=== PATIENT | female | born 1995 ===

== ENCOUNTER → 2020-06-12 10:56 | Outpatient (BNVA) | payer BC, SELFPAY | PROVIDERS: PCP Internal Medicine; Visit Provider Obstetrics & Gynecology ==

== ENCOUNTER 2020-07-30 09:47 | Outpatient (REF) | payer BC, SELFPAY ==
[2020-07-30 12:58] LABS: Syphilis Screen Nonreactive (Nonreactive)
[2020-07-30 13:09] LABS: CT PCR NOT DETECTED (Not Detect.); NG PCR NOT DETECTED (Not Detect.)
[2020-07-31 04:24] LABS: HIV AB/AG Nonreactive (Nonreactive); HIV Num 1 0.05 S/CO (0.00-0.99)
[2020-07-31 04:36] LABS: HBc Num1 0.07 S/CO (0.00-0.79); Hepatitis B Core Antibody Nonreactive (Nonreactive)
[2020-07-31 05:06] LABS: ~HepC Num1 0.12 S/CO (0.00-0.79); ~Hepatitis C Antibody Nonreactive (Nonreactive)
[2020-08-10 21:57] LABS: HPV 16 RNA NOT DETECTED (NOT DETECTED); HPV mRNA E6/E7 rflx Detected (Not Detected)
== END 2020-07-30 09:48 | disposition home or self-care (01) ==
LOC: HO.LAB 09:47
PROVIDERS: PCP Internal Medicine; Visit Provider Advanced Practice Midwife
DX: Z01.419 Encounter for gynecological examination (general) (routine) without abnormal findings (principal); E28.2 Polycystic ovarian syndrome; Z20.2 Contact with and (suspected) exposure to infections with a predominantly sexual mode of transmission; Z86.19 Personal history of other infectious and parasitic diseases
CPT/HCPCS: 36415; 86704; 86780; 86803; 87389; 87491; 87591; 87624; 87625; 88141; 88142

== ENCOUNTER 2020-09-04 09:06 | Outpatient (REF) | payer BC, SELFPAY | END 2020-09-04 09:07 | disposition home or self-care (01) | LOC: HO.LAB 09:06 | PROVIDERS: Visit Provider Obstetrics & Gynecology | DX: N87.0 Mild cervical dysplasia (principal) | CPT/HCPCS: 57454; 88305; 88342; 88360 ==

== ENCOUNTER → 2020-09-21 15:27 | Outpatient (BNVA) | payer BC, SELFPAY | PROVIDERS: Visit Provider Obstetrics & Gynecology ==

== ENCOUNTER → 2020-10-23 13:56 | Outpatient (BNVA) | payer BC, SELFPAY | PROVIDERS: Visit Provider Obstetrics & Gynecology ==

== ENCOUNTER 2020-10-25 08:33 | Day surgery (SDC) | payer BC, SELFPAY ==
[2020-10-19 13:59] VITALS: BMI 34.7
--- NOTE | 2020-10-23 11:00 | HO.ANESPROP2 ---
Documented by User: Noreen Cat 10/23/20 11:00 HPI - Anesthesia Eval Consult details Narrative: 25yo F for LEEP [facility] Active Problems Active Problems: All Active Problems (Updated 06/12/20 @ 11:19 by Zaki Myers MD) PCOS (polycystic ovarian syndrome) (Acute) Past Medical History Medical History PCOS (polycystic ovarian syndrome) Surgical History Surgical History Surgical history unknown Social History Social History Alcohol intake: current Alcohol intake frequency: holidays/special occasions only Patient Tobacco Use Status: Never used Tobacco Are you DNR?: No Advance Directives Information Provided: No Gender identity: female Meds Allergies Allergy/AdvReac Type Severity Reaction Status Date / Time No Known Allergies Allergy Verified 10/23/20 14:05 [No Known Allergies*] Home Medications Medication Instructions Recorded Confirmed Last Taken Type amoxicillin 500 mg capsule 500 mg PO BID 06/12/20 Unknown History Exam Exam Date and Time: October 23, 2020 1100 Height,Weight and Vital Signs: Height 5 ft 1 in Weight 83.461 kg Assessment and Plan Assessment Anesthesia Assessment: Chart Reviewed Documented by User: Jing Blue 10/25/20 09:59 [facility] Past Medical History Medical History PCOS (polycystic ovarian syndrome) Family History Family history of problems with anesthesia: No Surgical History Surgical History Surgical history unknown History of Problems with Anesthesia: No Social History Social History Alcohol intake: current Alcohol intake frequency: holidays/special occasions only Patient Tobacco Use Status: Never used Tobacco Are you DNR?: No Advance Directives Information Provided: No Gender identity: female Meds Allergies Allergy/AdvReac Type Severity Reaction Status Date / Time No Known Allergies Allergy Verified 10/23/20 14:05 [No Known Allergies*] Home Medications Medication Instructions Recorded Confirmed Last Taken Type amoxicillin 500 mg capsule 500 mg PO BID 06/12/20 Unknown History Exam Height,Weight and Vital Signs: Vital Signs Temp Pulse Resp BP Pulse Ox 10/25/20 09:07 98.1 F 88 16 115/69 99 Pertinent Lab Results Pertinent Lab Results: Lab Results 10/25/20 Range/Units 08:46 Urine Test NEGATIVE (NEGATIVE) Airway Mallampati Class: II TM Dist: >3cm Neck ROM: Full Heart: RRR Lungs: CTAB Assessment and Plan Assessment Anesthesia Assessment: Anesthesia Plan Discussed and Chart Reviewed Final Anesthetic Review NPO: Yes ASA Class: II Final Preanesthetic Review: No Changes in Pt Med Stat, Meds/Allgs Chart Reviewed and Consent Obtained/Reviewed Patient Risk: Low Procedure Risk: Low Assessment/Block/Sedation in SS: Assess/Block/Sedation-SS Anesthetic Plan Anesthetic Plan: GA Disposition: Standard PACU
[2020-10-25] VITALS (8 sets, daily range): BP systolic 94–119; BP diastolic 44–70; PULSE 71–103; RESP 12–16; TEMP 36.1–36.7; O2SAT 96–99
[2020-10-25 08:56] LABS: UPreg QC Valid YES; Urine Pregnancy NEGATIVE (NEGATIVE)
[2020-10-25] MEDS: Lactated Ringers 1,000 ML 100 ML IVCONT (09:28)
--- NOTE | 2020-10-25 09:59 | MHC.SHP ---
Pre-Procedural Eval Section A The patient is an INPATIENT: No Changes since office visit: No Cold of Flu in the past 2 weeks, No New Medical Problems, No Changes in Medication and No Patient answered all questions The History & Physical has been completed within 30 days and I have reviewed it.: Yes Section B Chief Complaint: jeimy III Allergies: Allergies Allergy/AdvReac Type Severity Reaction Status Date / Time No Known Allergies Allergy Verified 10/23/20 14:05 [No Known Allergies*] Plan I have reviewed the history and physical and performed a pertinent physical examination on my patient. No changes have occurred unless specified.
--- NOTE | 2020-10-25 10:00 | P.OP_ITS ---
Operative Note Operative Note Date of Service: 10/25/20 Narrative: Preoperative Diagnosis: GENESIS III Postoperative Diagnosis: GENESIS III Procedure performed: Loop electrosurgical excision procedure Anesthesia: Findings: No non-staining areas with Lugols Complications: none Disposition: PACU Ms. Sutton is a 25 year old G0 with GENESIS 3 on endocervical curettage; colposcopy done for LSIL, HR HPV+ pap smear. Colposcopic cervical biopsy at 2 o'clock showed no GENESIS; however ECC showed GENESIS 3. Surgical Risks: The patient was informed of the risks and benefits of the LEEP procedure. Risks included but were not limited to bleeding, infection, injury to the vulva, vagina, or cervix, uterine perforation, and increased risk of labor in a future . The patient expressed understanding of the risks involved, all questions were answered, and the patient consented to the procedure. The patient was taken to the procedure room where a time out was performed to confirm correct patient and correct procedure. General anesthesia was established. The patient was positioned on the operating table in the dorsal lithotomy position with the legs supported using stirrups. All pressure points were padded and a warm blanket was placed to maintain control of core body temperature. The patient was prepped and draped in the usual sterile fashion. The bladder was emptied. A bivalve speculum was inserted into the vagina and the cervix was visualized. Local anesthesia with 1% lidocaine with epinephrine was injected for a total of 10cc circumferentially starting at 12 o'clock. Lugol's iodine was applied to the cervix with non non-staining areas being noted. The medium regular loop elect rode was used to excise the cervical sample using the mixed cautery starting at the 9 o'clock position laterally and extending to 3 o'clock. The gross specimen was removed and sent to pathology. The small regular loop electrode was then used to excise part of the endocervix. The gross specimen was removed and sent to pathology. Endocervical curettage was completed using the sridharian curette, placed on a telfa, and also sent to pathology. Ball electrocautery was used to obtain adequate hemostasis. Monsel's solution was then applied to maintain hemostasis. Good hemostasis was confirmed. The bivalve speculum was removed from the vagina. At the completion of the procedure, all needle, sponge, and instrument counts were noted to be correct x2. Patient tolerated the procedure well and was madera sferred to the recovery room in stable condition.
[2020-10-25] MEDS: ondansetron HCL 4 MG/2 ML VIAL IVPUSH (10:59)
== END 2020-10-25 12:30 | disposition home or self-care (01) ==
LOC: HO.SSS 08:34
PROVIDERS: Nurse Practitioner; Visit Provider Obstetrics & Gynecology
PROC: 0UBC7ZZ Excision of Cervix, Via Natural or Artificial Opening (ICD-10-PCS; CPT 57522; principal; 2020-10-25 10:40)
DX: D06.0 Carcinoma in situ of endocervix (principal); E28.2 Polycystic ovarian syndrome; Z79.899 Other long term (current) drug therapy
CPT/HCPCS: 57522; 81025; 88305; 88307; 88342; 88360; J1100; J2250; J2405; J2550; J3010

== ENCOUNTER 2021-05-31 08:46 | Outpatient (REF) | payer BC, SELFPAY ==
[2021-06-15 02:26] LABS: HPV 16 RNA NOT DETECTED (NOT DETECTED); HPV mRNA E6/E7 rflx Detected (Not Detected)
== END 2021-05-31 08:47 | disposition home or self-care (01) ==
LOC: HO.LAB 08:46
PROVIDERS: PCP Internal Medicine; Visit Provider Advanced Practice Midwife
DX: Z01.411 Encounter for gynecological examination (general) (routine) with abnormal findings (principal); Z11.51 Encounter for screening for human papillomavirus (HPV); D06.9 Carcinoma in situ of cervix, unspecified
CPT/HCPCS: 87624; 87625; 88142

== ENCOUNTER 2021-07-08 08:50 | Outpatient (REF) | payer BC, SELFPAY | END 2021-07-08 08:51 | disposition home or self-care (01) | LOC: HO.LAB 08:50 | PROVIDERS: PCP Internal Medicine; Visit Provider Obstetrics & Gynecology | DX: D06.9 Carcinoma in situ of cervix, unspecified (principal) | CPT/HCPCS: 57454; 88305; 88342; 88360 ==

== ENCOUNTER → 2021-07-22 11:31 | Outpatient (BNVA) | payer BC, SELFPAY | PROVIDERS: Visit Provider Obstetrics & Gynecology | DX: Z13.89 Encounter for screening for other disorder (principal) ==

== ENCOUNTER 2021-09-24 08:48 | Outpatient (REF) | payer BC, SELFPAY ==
[2021-09-24 16:54] LABS: CT PCR NOT DETECTED (Not Detect.); NG PCR NOT DETECTED (Not Detect.)
== END 2021-09-24 08:49 | disposition home or self-care (01) ==
LOC: HO.LAB 08:48
PROVIDERS: PCP Internal Medicine; Visit Provider Advanced Practice Midwife
DX: Z01.419 Encounter for gynecological examination (general) (routine) without abnormal findings (principal); Z20.2 Contact with and (suspected) exposure to infections with a predominantly sexual mode of transmission
CPT/HCPCS: 81025; 87491; 87591

== ENCOUNTER 2021-09-24 09:45 | Outpatient (REF) | payer BC, SELFPAY ==
[2021-09-25 07:46] LABS: HBc Num1 0.09 S/CO (0.00-0.79); HIV AB/AG Nonreactive (Nonreactive); HIV Num 1 0.05 S/CO (0.00-0.99); Hepatitis B Core Antibody Nonreactive (Nonreactive); ~Hepatitis C Antibody Nonreactive (Nonreactive)
[2021-09-25 12:49] LABS: Syphilis Screen Nonreactive (Nonreactive)
== END 2021-09-24 09:46 | disposition home or self-care (01) ==
LOC: HO.LAB 09:45
PROVIDERS: PCP Internal Medicine; Visit Provider Advanced Practice Midwife
DX: Z01.84 Encounter for antibody response examination (principal); Z11.4 Encounter for screening for human immunodeficiency virus [HIV]; Z20.2 Contact with and (suspected) exposure to infections with a predominantly sexual mode of transmission
CPT/HCPCS: 36415; 86704; 86780; 86803; 87389

== ENCOUNTER 2022-09-30 13:42 | Outpatient (REF) | payer BC, SELFPAY | END 2022-09-30 13:43 | disposition home or self-care (01) | LOC: HO.LNP 13:42 | PROVIDERS: PCP Internal Medicine; Visit Provider Advanced Practice Midwife | DX: Z01.419 Encounter for gynecological examination (general) (routine) without abnormal findings (principal) | CPT/HCPCS: 88142 ==

== ENCOUNTER 2022-09-30 14:34 | Outpatient (REF) | payer BC, SELFPAY ==
[2022-10-01 04:11] LABS: Syphilis Screen Nonreactive (Nonreactive)
[2022-10-01 04:21] LABS: HBc Num1 0.09 S/CO (0.00-0.79); HIV AB/AG Nonreactive (Nonreactive); HIV Num 1 0.06 S/CO (0.00-0.99); Hepatitis B Core Antibody Nonreactive (Nonreactive); ~HepC Num1 0.12 S/CO (0.00-0.79); ~Hepatitis C Antibody Nonreactive (Nonreactive)
[2022-10-01 06:01] LABS: CT PCR NOT DETECTED (Not Detect.); NG PCR NOT DETECTED (Not Detect.)
== END 2022-09-30 14:35 | disposition home or self-care (01) ==
LOC: HO.LAB 14:34
PROVIDERS: PCP Internal Medicine; Visit Provider Advanced Practice Midwife
DX: Z11.4 Encounter for screening for human immunodeficiency virus [HIV] (principal); Z20.2 Contact with and (suspected) exposure to infections with a predominantly sexual mode of transmission
CPT/HCPCS: 0353U; 86704; 86780; 86803; 87389

== ENCOUNTER 2024-05-25 10:45 | Outpatient (AMB) | payer OTHER, SELFPAY ==
--- NOTE | 2024-05-25 11:03 | A.OFFPC_ITS ---
Vital Signs 05/25/24 11:17 Height 5 ft Weight 193 lb BMI 37.7 BP 100/82 Blood Pressure Location Lt brachial Position Sitting Pulse 67 Pulse Source Pulse Oximeter Pulse Oximetry (%) 98 Oxygen Delivery Method Room Air Intake Visit Reasons: EP // Annual PE Intake Note: Pt is here today for her PE: last papsmear 10/01/22 Is last menstrual period known: Yes Last menstrual period: 02/14/24 Allergies No Known Allergies [No Known Allergies*] Allergy (Verified 05/25/24 11:43) Medication List - Last Reconciled 05/25/24 by Glenda Farrell MD No Known Home Meds Tobacco use date assessed: 05/25/24 Dental Screening Dental Screen Date: 05/25/24 Did you have a dental visit in the last 12 months?: Yes Did you have a dental problem in the last 6 months where you did not have access to dental care?: Yes Was dental information given to patient?: Patient has dentist HPI EP // Annual PE HPI Details 29-year-old lady here today for physical exam. Her last cervical can cer screening and pelvic exam was done 09/30/2022 at [facility] with negative findings, and has an upcoming appointment for next month for her routine Pap and pelvic exam already scheduled. 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 PCOS (polycystic ovarian syndrome) Surgical History H/O LEEP Surgical history unknown Family History (Updated 05/25/24 @ 11:20 by Nereida Muñiz CMA) Maternal Grandmother Diabetes Paternal Grandmother Diabetes Social History Housing: Apartment Alcohol intake: current Alcohol intake frequency: holidays/special occasions only Patient Tobacco Use Status: Never used Tobacco Current occupational status: employed Current occupation: [employer] Sexual orientation: Straight/Heterosexual Gender identity: Female Cognitive needs: No Hearing needs: No Vision needs: Yes Female Reproductive History Menstrual Age of Menarche: 11 Date of last menstrual period: 02/14/24 control method: none Date of last pap smear: 10/01/22 History of abnormal pap smear: Yes Questionnaire PHQ-9 Over the last 2 weeks, how often have you been bothered by any of the following problems? 1. Little interest or pleasure in doing things: not at all 2. Feeling down, depressed, or hopeless: not at all 3. Trouble falling or staying asleep, or sleeping too much: several days 4. Feeling tired or having little energy: not at all 5. Poor appetite or overeating: not at all 6. Feeling bad about yourself - or that you are a failure or have let yourself or your family down: not at all 7. Trouble concentrating on things, such as reading the newspaper or watching television: not at all 8. Moving or speaking so slowly that other people could have noticed. Or the opposite - being so fidgety or restless that you have been moving around a lot more than usual: not at all 9. Thoughts that you would be better off or of hurting yourself in some way: not at all Total score: 1 Depression Screening Interpretation: Negative Depression Screening Done: Yes Source: Developed by Drs. Mega Lawrence, Valorie Edwards, Marco Easley and colleagues, with an educational issa from [employer]. Thrive Questionnaire Date Thrive assessed: 05/18/24 I am a: Patient What is your living situation today?: I have a steady place to live Within the past 12 months, did the food you bought not last and you didn't have the money to get more?: Never true Within the past 12 months, did you worry whether your food would run out before you got money to buy more?: Never true Do you have trouble paying for medicines?: No Do you have trouble getting transportation to medical appointments?: No Do you have trouble paying your heating and electricity bill?: No Do you have trouble taking care of your child, family member or friend?: No Do you have trouble with day-to-day activities such as bathing, preparing meals, shopping, managing finances, etc.?: No Are you currently unemployed and looking for a job?: No Are you interested in more education?: No Please select the resources that you would like help with: None Currently or been in a relationship where the following occur: No concerns reported THRIVE Score: 0 AUDIT C Alcohol Use Questionnaire (AUDIT-C) 1. How often do you have a drink containing alcohol?: Monthly or less 2. How many drinks containing alcohol do you have on a typical day when you are drinking?: 1 or 2 3. How often do you have six or more drinks on one occasion?: Never Total Score: 1 GEO-7 AMB Questionnaire GEO-7 Date GEO - 7 assessed: 05/25/24 Feeling nervous, anxious, or on edge: 0 = Not at all Not being able to stop or control worryin = Not at all Worrying too much about different things: 0 = Not at all Trouble relaxin = Not at all Being so restless that it is hard to sit still: 0 = Not at all Becoming easily annoyed or irritable: 0 = Not at all Feeling afraid as if something awful might happen: 0 = Not at all Total GEO-7 score (0-4 normal; 5-9 mild; 10-14 moderate; 15-21 severe): 0 Source: Developed by Drs. Mega Lawrence, Valorie Edwards, Marco Easley and colleagues, with an educational issa from [employer]. GEO-7 Assessment Billing GEO-7 Assessment Tool: GEO-7 Assessment 24033 Review of Systems Const Denies body aches, Denies fatigue, Denies fever(s), Denies headache(s) and Denies weakness Eyes Denies change in vision, Denies eye discharge and Denies itchy eyes ENT Denies dizziness, Denies headache(s), Denies nasal congestion, Denies nasal discharge and Denies sore throat Card Denies chest pain, Denies lightheadedness, Denies palpitations and Denies dyspnea Resp Denies chest congestion, Denies cough, Denies dyspnea and Denies wheezing GI Denies abdominal pain, Denies change in bowel habits and Denies heartburn Reports abnormal menses (due to PCOS , followed by OBGYN), Denies hematuria, Denies urinary frequency, Denies dysuria, Denies urinary urgency and Denies vaginal discharge Musc Reports no additional complaints Skin/Breast Denies breast pain, Denies breast mass, Denies lesions and Denies rash Neuro Denies dizziness, Denies headache(s) and Denies weakness Psych Reports no additional complaints Endo Denies fatigue, Denies polydipsia, Denies polyuria and Denies palpitations Cameron/Lymph Denies easy bruising Aller/Immun Denies itchy eyes, Denies seasonal rhinorrhea and Denies wheezing Physical exam (Primary Care) Vital Signs: Last Vital Signs Pulse 67 05/25/24 11:17 BP 100/82 05/25/24 11:17 Pulse Ox 98 05/25/24 11:17 Oxygen Delivery Method Room Air 05/25/24 11:17 BMI result Body Mass Index 37.7 Tobacco/Smoking Status: Tobacco use Status Tobacco use date assessed 05/25/24 05/25/24 11:05 Patient Tobacco Use Status Never used Tobacco 05/25/24 11:05 PHQ-9: PHQ-9 Score PHQ-9: Total score 1 05/25/24 11:47 Depression Screening Interpretation: Negative Thrive Assessment: Date of Thrive Assessment Date Thrive assessed 05/18/24 05/25/24 11:05 Currently or been in a relationship where the following occur: No concerns reported Advance Care Planning discussion: Completed/Scanned Date of discussion: 05/25/24 Who was present: Patient Forms completed: Health Care Proxy Time spent: 16-45 minutes Actual minutes spent: 3 Const General: no acute distress and alert Orientation/consciousness: patient oriented x3 HENMT Ears: external ears normal, TM's normal bilaterally and EAC's normal General nose exam: Normal external nose present and No nasal discharge present Face and sinus: Yes face symmetric Mouth: Normal oral and palatal mucosa present, lip normal, tongue normal, oropharynx normal and moist mucous membranes Eyes General: appearance normal, both eyes and all related structures Eyelids: Yes eyelids normal Conjunctivae: conjunctivae normal Sclerae: sclerae normal Pupils: Equal, round and reactive pupils present EOM: EOMs intact bilaterally Neck Neck: Yes full ROM, Yes no lymphadenopathy and Yes supple Thyroid: Thyroid normal Chest Chest palpation & inspection: normal inspection of the chest Breast/axilla inspection: normal inspection of the breasts Breast/axilla palpation: normal palpation of the breasts and normal palpation of the axillae Resp Effort & Inspection: normal respiratory effort and able to speak in complete sentences Auscultation: clear to auscultation bilaterally Cardio Rate: regular rate Rhythm: regular rhythm Heart sounds: S1 normal heart sound present and S2 normal heart sound present GI Palpation (GI): Soft to palpation, nontender, no guarding and no masses Auscultation: normal bowel sounds General: Yes no CVA tenderness Back/Spine/Pelvis Back: no CVA tenderness and No back tenderness Skin Other: Tattoos on right arm General skin exam: no rashes or lesions noted Neuro General: patient oriented x3, gait normal, moves all extremities, Normal light touch and pain sensation, no focal motor deficits and CN's II-XI intact bilaterally Cranial nerves: Yes Equal, round and reactive pupils present Gait exam (Neuro): Normal gait present Motor exam (neuro): 5/5 motor strength present throughout Extrem General: Yes normal to inspection, Yes full ROM, Yes no joint enlargement, Yes no pedal edema and Yes normal gait Psych Appearance: grossly normal and well kempt Mental Status: mental status grossly normal Speech and movement: Normal speech and movement present Affect: normal affect Attitude: cooperative Thought process: Normal thought process present Thought content: Normal thought content present Coding Level of Care Code Est Pt Prev Care 18-39y(59543) Diagnoses Annual visit for general adult medical examination with abnormal findings Z00. PCOS (polycystic ovarian syndrome) E28.2 Encounter for counseling regarding advance directives Z71.89 Obesity (BMI 30-39.9) E66.9 Additional Codes GEO-7 Assessment Billing - GEO-7 Assessment Tool: GEO-7 Assessment 25102 ([id number]) Vital Signs *Quality* - Advance Care Planning discussion: Completed/Scanned ([id number]) Vital Signs *Quality* - Time spent: 16-45 minutes ([id number]) Assessment & Plan Assessment & Plan (1) Annual visit for general adult medical examination with abnormal findings: Code(s): Z00.01 - Encounter for general adult medical examination with abnormal findings Plan: Will check appropriate labs. Up-to-date with regular dental visit every 6 months and regular eye exams, at least every 2 years. Advised weight loss, through diet and exercise advised to follow a Mediterranean diet Instructed to do self-breast exam, and recommended to get yearly mammogram, starting at age 40. Flu vaccine given today, advised to get her Tdap. Declined COVID vaccination (2) PCOS (polycystic ovarian syndrome): Code(s): E28.2 - Polycystic ovarian syndrome Category: Medical Plan: Currently followed by [facility] (3) Encounter for counseling regarding advance directives: Code(s): Z71.89 - Other specified counseling Plan: Initiated the conversation about Advanced Directives. Advanced Directives help patients prepare for current and future decisions about their medical treatment and place of care. Discussed with patient that it is a process where a patients current condition and prognosis are reviewed, their wishes for information regarding their illness are elicited, and likely medical dilemmas are presented and options discussed. Healthcare proxy form completed. The form can be amended as needed, reviewed yearly and make changes as needed (4) Obesity (BMI 30-39.9): Code(s): E66.9 - Obesity, unspecified Category: Medical Plan: Discussed need to increase activity and wt reduction. Advised to follow a Mediterranean diet. Stopped drinking soda,, limit foods high in fat, sugar, and calories, eat slowly, pay attention to portion sizes, plan your meals ahead of time, start regular physical activity 150 minutes of moderate intensity exercise or 90 minutes/week of vigorous exercise Orders: Orders Vitamin D 25-OH Total Today E28.2 - Polycystic ovarian syndrome, Z00.01 - Encounter for general adult medical examination with abnormal findings, Z71.89 - Other specified counseling Lipid Panel Today E28.2 - Polycystic ovarian syndrome, Z00.01 - Encounter for general adult medical examination with abnormal findings, Z71.89 - Other specified counseling Glucose Fasting Today E28.2 - Polycystic ovarian syndrome, Z00.01 - Encounter for general adult medical examination with abnormal findings, Z71.89 - Other specified counseling Complete Blood Count Auto Diff Today E28.2 - Polycystic ovarian syndrome, Z00.01 - Encounter for general adult medical examination with abnormal findings, Z71.89 - Other specified counseling
[2024-05-25 11:17] VITALS: BP 100/82; PULSE 67; O2SAT 98; BMI 37.7
== END 2024-05-25 12:13 | disposition home or self-care (01) ==
PROVIDERS: PCP Internal Medicine; Visit Provider Internal Medicine
DX: Z00.00 Encounter for general adult medical examination without abnormal findings (principal); E28.2 Polycystic ovarian syndrome; E66.9 Obesity, unspecified; Z68.37 Body mass index [BMI] 37.0-37.9, adult; Z71.89 Other specified counseling; Z23 Encounter for immunization

== ENCOUNTER 2024-05-25 10:45 | Outpatient (REF) | payer OTHER, SELFPAY ==
[2024-05-25 13:00] LABS: MANUAL DIFF FLAG NO
[2024-05-25 13:13] LABS: Basophils Percent Auto 0.3 % (0-2); Eosinophils Absolute Auto 0.1 X10*3/uL (0.0-0.4); Eosinophils Percent Auto 1.5 % (0-4); Hemoglobin 14.3 g/dl (12.0-16.0); Imm Gran Abs Auto 0.02 X10*3/uL (0.00-0.03); Imm Gran Pct Auto 0.3 % (0.0-0.4); Lymphocytes Absolute Auto 2.8 X10*3/uL (1.2-4.9); Lymphocytes Percent Auto 38.4 % (20-40); Mean Corpuscular Volume 88.1 fL (80.0-98.0); Mean Platelet Volume 10.4 fL (9.4-12.3); Monocytes Absolute Auto 0.5 X10*3/uL (0.1-1.2); Monocytes Percent Auto 7.3 % (2-11); Neutrophils Absolute Auto 3.8 x10*3/uL (2.0-8.3); Neutrophils Percent Auto 52.2 % (45-73); Platelet Count 348 X10*3/uL (160-400); Red Blood Count 4.77 X10*6/uL (4.20-5.50); Red Cell Distribution Width 12.8 % (11.0-16.0); White Blood Count 7.2 X10*3/uL (4.8-10.8)
[2024-05-25 13:49] LABS: Cholesterol 150 mg/dL (<200); Glucose Fasting 85 mg/dL (60-99); HDL Cholesterol 35 mg/dL (>40); LDL Cholesterol Calculated 100 mg/dL (<100); Triglycerides 77 mg/dL (<150)
[2024-05-25 14:04] LABS: Vitamin D 25-OH Total 17.1 ng/mL (>30)
== END 2024-05-25 10:46 | disposition home or self-care (01) ==
LOC: HO.HMGCLDS 10:45
PROVIDERS: PCP Internal Medicine; Visit Provider Internal Medicine
DX: Z00.01 Encounter for general adult medical examination with abnormal findings (principal); Z23 Encounter for immunization; E28.2 Polycystic ovarian syndrome; E66.9 Obesity, unspecified; Z68.37 Body mass index [BMI] 37.0-37.9, adult; Z71.89 Other specified counseling; Z13.1 Encounter for screening for diabetes mellitus
CPT/HCPCS: 36415; 80061; 82306; 82947; 85025; 90471; 90656; 96127

== ENCOUNTER 2024-06-22 09:29 | Outpatient (AMB) | payer OTHER, SELFPAY ==
[2024-06-22 10:25] VITALS: BP 94/60; PULSE 72; RESP 16; TEMP 36.8; O2SAT 98; BMI 37.3
--- NOTE | 2024-06-22 10:25 | MHC.PC.OV ---
Vital Signs 06/22/24 10:25 Height 5 ft Weight 191 lb BMI 37.3 BP 94/60 Blood Pressure Location Rt brachial Position Sitting Respiration 16 Pulse 72 Pulse Source Pulse Oximeter Temp 98.2 F Temp Source Oral Pulse Oximetry (%) 98 Oxygen Delivery Method Room Air Intake Visit Reasons: ER Melania f/u slipped on ice at home 06/17/24 Intake Note: Pt is here today took a fall on 06/11/24 at home on ice hit head: Went to [facility] ER same day: Still having H/A Allergies No Known Allergies [No Known Allergies*] Allergy (Verified 06/22/24 10:41) Medication List - Last Reconciled 06/22/24 by Glenda Farrell MD No Known Home Meds Tobacco use date assessed: 05/25/24 Dental Screening Dental Screen Date: 05/25/24 HPI ER Melania antony/u slipped on ice at home 06/17/24 HPI Details 29-year-old lady here today for follow-up after recent ER visit at [facility] 06/17/2024 . Patient states that she was stepping out of her house and slipped on the ice on the stairs, fell backwards and hit her head. Denies any loss of consciousness, but patient is still complaining of pain and stiffness across her lower back, nonradiating No accompanying nausea, no vomiting, no fainting spells or lightheadedness reported. As per patient there was no imaging studies done at the ER. [facility] Medical History Vitamin D deficiency Obesity (BMI 30-39.9) GENESIS III (cervical intraepithelial neoplasia grade III) with severe dysplasia PCOS (polycystic ovarian syndrome) Surgical History H/O LEEP Surgical history unknown Family History Maternal Grandmother Diabetes Paternal Grandmother Diabetes Social History Housing: Apartment Alcohol intake: current Alcohol intake frequency: holidays/special occasions only Patient Tobacco Use Status: Never used Tobacco Current occupational status: employed Current occupation: [employer] Sexual orientation: Straight/Heterosexual Gender identity: Female Cognitive needs: No Hearing needs: No Vision needs: Yes Female Reproductive History Menstrual Age of Menarche: 11 Questionnaire Thrive Questionnaire Date Thrive assessed: 05/18/24 I am a: Patient What is your living situation today?: I have a steady place to live Within the past 12 months, did the food you bought not last and you didn't have the money to get more?: Never true Within the past 12 months, did you worry whether your food would run out before you got money to buy more?: Never true Do you have trouble paying for medicines?: No Do you have trouble getting transportation to medical appointments?: No Do you have trouble paying your heating and electricity bill?: No Do you have trouble taking care of your child, family member or friend?: No Do you have trouble with day-to-day activities such as bathing, preparing meals, shopping, managing finances, etc.?: No Are you currently unemployed and looking for a job?: No Are you interested in more education?: No Please select the resources that you would like help with: None Currently or been in a relationship where the following occur: No concerns reported THRIVE Score: 0 GEO-7 AMB Questionnaire GEO-7 Date GEO - 7 assessed: 05/25/24 Source: Developed by Drs. Mega Lawrence, Valorie Edwards, Marco Easley and colleagues, with an educational issa from [employer]. Review of Systems Const All systems reviewed & are unremarkable except as noted in HPI and below Physical exam (Primary Care) Vital Signs: Last Vital Signs Temp 98.2 F 06/22/24 10:25 Pulse 72 06/22/24 10:25 Resp 16 06/22/24 10:25 BP 94/60 06/22/24 10:25 Pulse Ox 98 06/22/24 10:25 Oxygen Delivery Method Room Air 06/22/24 10:25 BMI result Body Mass Index 37.3 Tobacco/Smoking Status: Tobacco use Status Tobacco use date assessed 05/25/24 06/22/24 10:28 Patient Tobacco Use Status Never used Tobacco 06/22/24 10:28 Thrive Assessment: Date of Thrive Assessment Date Thrive assessed 05/18/24 06/22/24 10:28 Currently or been in a relationship where the following occur: No concerns reported Const Other: Ambulatory with normal gait General: no acute distress, alert and awake Orientation/consciousness: patient oriented x3 HENMT Head: Yes normal to inspection, Yes No palpable skull fracture present, Yes normocephalic and Yes atraumatic General nose exam: Normal external nose present Face and sinus: Yes normal facial exam and Yes face symmetric Eyes General: appearance normal, both eyes and all related structures Periorbital: periorbital findings normal Conjunctivae: conjunctivae normal Pupils: Equal, round and reactive pupils present EOM: EOMs intact bilaterally Neck Neck: Yes full ROM, Yes no lymphadenopathy and Yes supple Resp Auscultation: clear to auscultation bilaterally Cardio Other: S1-S2 present regular rate and rhythm GI Palpation (GI): Soft to palpation, nontender and no guarding Back/Spine/Pelvis Thoracic/Lumbar Spine: straight leg raise negative bilaterally and paraspinal muscle tenderness bilaterally in the mid lumbar and in the lower lumbar Skin General skin exam: no rashes or lesions noted and no ecchymosis Neuro General: patient oriented x3 Cranial nerves: Yes Equal, round and reactive pupils present Extrem General: Yes full ROM, Yes no joint enlargement, Yes no clubbing, cyanosis or edema, Yes no calf tenderness and Yes normal gait Coding Level of Care Code Est Pt Level 3 (27471) Diagnoses Low Back Pain M54.50 History of bad fall Z91.81 Assessment & Plan Assessment & Plan (1) Low Back Pain: Code(s): M54.50 - Low back pain, unspecified (2) History of bad fall: Code(s): Z91.81 - History of falling Plan Ordered x-ray of lumbar spine 6 views with bending, prescription sent for tizanidine 4 mg per tablet to take half a tablet to a whole tablet twice a day only as needed for painful muscle spasms. May take an occasional Tylenol alternate with Motrin every 8 hours as needed for pain. Return to clinic if no improvement of symptoms after 1 week Orders: Orders XR lumbar spine 6V w bending 06/22/24 M54.50 - Low back pain, unspecified, Z91.81 - History of falling Medications: New tizanidine 4 mg PO BID PRN 20 tabs 0RF muscle spasticity
--- OUTSIDE RECORDS SUMMARY | 2024-06-22 10:42 | XMS_ITS | Patient Health Record ---
Author Organization [facility] Address [address] [address] Care Team Providers Care Shirt Ironer Supervisor Name Role Phone Damaris Rodriguez Unavailable [phone] Reason For Referral No Information Encounters Encounter Location Date Provider Diagnosis [facility] [address] [address] 05/31/2024 Damaris Rodriguez Plan Of Treatment No Information
--- OUTSIDE RECORDS SUMMARY | 2024-06-22 10:42 | XMS_ITS ---
Author Organization [facility] Address [address] [address] Care Team Providers Care Distillery Worker General Name Role Phone Rodriguez, Damaris Unavailable [phone] REASON FOR VISIT Annual MEDICAL SECRETARY RECEPTIONIST Physical Encounters Encounter Location Date Provider Diagnosis [facility] [address] 05/31/2024 Damaris Rodriguez Plan Of Treatment No Information Progress Notes * DEIDRA VARGASDOB: [birth year] (29 yo F)Acc No.[id number]:05/31/2024 Progress Note Patient:?DEIDRA VARGAS Appointment Provider:?Damaris bolanos M.D. :1995???Age:29 Y???Sex:Female D ate:05/31/2024 Address:[address] [place] [address] [id number] Subjective: * Chief Complaints: * ???1. Annual MEDICAL SECRETARY RECEPTIONIST Physical. * Medical History:? Objective: * Vitals:? Assessment: Plan: * Treatment: * Images: Billing Information: * Visit Code:? * Procedure Codes:? * Electronic signature of Regina Rodriguez MD on 06/22/2024 at 10:41 AM EST Sign off status: Pending * Appointment Provider:?Damaris Rodriguez M.D. Date:?05/31/2024 Generated for Justyn chau/Danielle/Dawitsmitting on:?06/22/2024 10:41 AM EST
== END 2024-06-22 11:06 | disposition home or self-care (01) ==
PROVIDERS: PCP Internal Medicine; Visit Provider Internal Medicine
DX: M54.50 Low back pain, unspecified (principal); Z91.81 History of falling

== ENCOUNTER 2024-06-22 09:29 | Outpatient (REF) | payer OTHER, SELFPAY ==
--- NOTE | ~2024-06-22 | XR_ITS ---
EXAMINATION: XR LUMBOSACRAL SPINE CLINICAL INFORMATION: M54.50 - Low back pain, unspecified COMPARISON: None available. TECHNIQUE: 6 views of the lumbar spine, inclusive of flexion and extension views, were obtained. FINDINGS: Rudimentary ribs at T12. No acute cortical disruption or malalignment. No lytic or blastic lesions. No malalignment during flexion and/or extension. XR/XR lumbar spine 6V w bending IMPRESSION: No acute fracture or listhesis or instability. Electronically signed by: Felix Reich MD 06/22/2024 11:30 AM KEATON LORENZ
== END 2024-06-22 09:30 | disposition home or self-care (01) ==
LOC: HO.HMGCX 09:29
PROVIDERS: PCP Internal Medicine; Visit Provider Internal Medicine
DX: M54.50 Low back pain, unspecified (principal); Z91.81 History of falling
CPT/HCPCS: 72114

== ENCOUNTER → 2024-06-22 10:59 | Outpatient (BNV) | payer OTHER, SELFPAY | PROVIDERS: PCP Internal Medicine; Visit Provider Radiology Diagnostic Radiology | DX: M54.50 Low back pain, unspecified (principal) | CPT/HCPCS: 72114 ==